=== PATIENT | male | born 1975 | race African-American/Black ===

== ENCOUNTER 2017-04-18 00:33 | Inpatient (IN) | payer OTHER ==
[2017-04-18] MEDS ORDERED: methylPREDNISolone SOD SUCCI 125 MG/2 ML VIAL IV STA (00:48)
[2017-04-18] MEDS ORDERED: SODIUM CHLORIDE 0.9% 500 ML IV STA (00:48)
[2017-04-18] MEDS ORDERED: IPRATROPIUM 0.5 MG/2.5 ML NEBU INHALATION STA (00:48)
[2017-04-18] MEDS ORDERED: ALBUTEROL NEBULIZED 2.5 MG/3 ML INHALATION STA (00:48)
[2017-04-18 01:28] LABS: Basophils # (A) 0.1 k/uL (0-0.2); Basophils % (A) 1 %; CH 31.2; CHCM 34.3; Eosinophils # (A) 0.5 k/uL (0-0.7); Eosinophils % (A) 5 %; HCT 40.8 % (39.0-53.0); HDW 2.92; HGB 13.8 gm/dL (13.0-17.5); Luc # (Auto) 0.14; Luc % (Auto) 2; Lymphocytes # (A) 1.5 k/uL (1.0-4.8); Lymphocytes % (A) 16 %; MCH 31.1 pg (25.0-35.0); MCHC 33.9 g/dL (31.0-37.0); MCV 91.7 fL (80.0-100.0); Mean Platelet Volume 6.5; Monocytes # (A) 0.4 k/uL (0-1.0); Monocytes % (A) 4 %; Neutrophils # (A) 6.8 k/uL (1.3-7.7); Neutrophils % (A) 72 %; RBC 4.45 m/uL (4.30-5.90); RDW 13.7 % (11.5-15.5); WBC 9.5 k/uL (3.8-10.6); WBC (Perox) 9.56
[2017-04-18 01:40] LABS: ALT 66 U/L (21-72); AST 51 U/L (17-59); Alkaline Phosphatase 93 U/L (38-126); Anion Gap 12 mmol/L; Blood Urea Nitrogen 15 mg/dL (9-20); Carbon Dioxide 20 mmol/L (22-30); Chloride 108 mmol/L (98-107); Glucose 101 mg/dL (74-99); Magnesium 1.9 mg/dL (1.6-2.3); Non-African American GFR(MDRD) >60 (>60 ml/min/1.73 sqM); Potassium 4.3 mmol/L (3.5-5.1); Sodium 140 mmol/L (137-145); Total Bilirubin 0.8 mg/dL (0.2-1.3); Total Protein 7.2 g/dL (6.3-8.2)
[2017-04-18 01:41] LABS: INR 1.1 (<1.2); Prothrombin Time 10.6 sec (9.0-12.0)
[2017-04-18 01:42] LABS: Partial Thromboplastin Time 25.8 sec (22.0-30.0)
[2017-04-18 02:00] LABS: Creatine Kinase MB 2.2 ng/mL (0.0-2.4); Troponin I 0.02 ng/mL (0.000-0.034)
--- NOTE | 2017-04-18 02:26 | XR ---
EXAM: XR Chest, 2 Views CLINICAL HISTORY: Reason: difficulty breathing TECHNIQUE: Frontal and lateral views of the chest. COMPARISON: No relevant prior studies available. FINDINGS: Lungs: Unremarkable. No consolidation. Pleural space: Unremarkable. No pneumothorax. Heart: Unremarkable. No cardiomegaly. Mediastinum: Unremarkable. Bones/joints: Unremarkable. IMPRESSION: Normal chest x-rays.
[2017-04-18 02:59] VITALS: TEMP 98.4
[2017-04-18] MEDS ORDERED: amLODIPine 5 MG TAB PO STA ×2 (03:00→12:39)
[2017-04-18] MEDS ORDERED: IPRATROPIUM-ALBUTEROL 3 ML NEB INHALATION PRN (03:23)
[2017-04-18] MEDS ORDERED: SODIUM CHLORIDE 0.9% 1,000 ML IV SCH (03:30)
--- NOTE | 2017-04-18 03:39 | ED ---
General Adult HPI - General Chief complaint: Shortness of Breath Stated complaint: SALTY Time Seen by Provider: 04/18/17 00:41 Source: patient, RN notes reviewed Mode of arrival: ambulatory Limitations: no limitations - History of Present Illness Initial comments: 41-year-old male with history of asthma and hypertension presents with a an 8 day history of worsening cough and difficulty breathing. Patient's cough is productive of white sputum. Patient does report feeling warm and sweaty, denies fever or chills. Patient's cough has been worsening, was treated with cough syrup as an outpatient with minimal relief. Denies sore throat or runny nose. Does report some chest tightness worse with cough. This is nonradiating. Denies abdominal pain. Denies nausea vomiting or diarrhea. Patient states he has not taken his blood pressure medication over the last year. - Related Data Allergies Allergy/AdvReac Type Severity Reaction Status Date / Time tree nut Allergy Anaphylaxis Verified 04/18/17 00:40 Review of Systems ROS Statement: Those systems with pertinent positive or pertinent negative responses have been documented in the HPI. ROS Other: All systems not noted in ROS Statement are negative. Past Medical History Past Medical History: Asthma, Hypertension History of Any Multi-Drug Resistant Organisms: None Reported Additional Past Surgical History / Comment(s): left knee Past Psychological History: No Psychological Hx Reported Smoking Status: Current some day smoker Past Alcohol Use History: Occasional Past Drug Use History: None Reported General Exam Limitations: no limitations General appearance: alert, in distress Head exam: Present: atraumatic, normocephalic Eye exam: Present: normal appearance, PERRL ENT exam: Present: normal exam, normal oropharynx, mucous membranes dry Neck exam: Present: normal inspection. Absent: tenderness, meningismus Respiratory exam: Present: respiratory distress, wheezes, accessory muscle use, decreased breath sounds, prolonged expiratory Cardiovascular Exam: Present: normal rhythm, tachycardia GI/Abdominal exam: Present: soft. Absent: distended, tenderness, guarding Extremities exam: Present: normal inspection, full ROM, normal capillary refill. Absent: pedal edema Back exam: Present: normal inspection, full ROM. Absent: tenderness, CVA tenderness (R), CVA tenderness (L) Neurological exam: Present: alert, oriented X3, CN II-XII intact. Absent: motor sensory deficit Psychiatric exam: Present: normal affect, normal mood Skin exam: Present: warm, diaphoretic. Absent: cyanosis Course Vital Signs 04/18/17 04/18/17 04/18/17 00:35 00:58 01:05 Temperature 100.2 F H 97.7 F Pulse Rate 96 79 80 Respiratory 28 H 10 L Rate Blood Pressure 213/119 175/112 O2 Sat by Pulse 96 89 L Oximetry 04/18/17 04/18/17 04/18/17 01:26 02:00 02:56 Temperature 98.4 F Pulse Rate 75 85 75 Respiratory 18 Rate Blood Pressure 187/102 O2 Sat by Pulse 99 Oximetry 04/18/17 03:26 Temperature Pulse Rate 82 Respiratory 20 Rate Blood Pressure 179/108 O2 Sat by Pulse 97 Oximetry - Reevaluation(s) Reevaluation #1: 04/18/17 03:40 Reevaluation, patient is still in moderate respiratory distress, has prolonged end expiratory wheeze. There is improved air entry after nebulized albuterol. EKG Findings - EKG Comments: EKG Findings:: EKG shows normal sinus rhythm, ventricular rate 81, RI interval 162, castration 86, QTC 439, there is J-point elevation in V3, no signs of ischemia Medical Decision Making - Medical Decision Making 41-year-old male with known history of asthma presents with 8 days of worsening cough and dyspnea. On initial evaluation patient is tachypneic, tachycardic, hypertensive, in moderate respiratory distress. He is hypoxic at 89% on 2 L nasal cannula. Patient has decreased breath sounds with end expiratory wheezing , accessory muscle use. Patient is given IV steroids, one hour treatment of albuterol and Atrovent. Laboratory studies including CBC, CMP, and cardiac enzymes are unremarkable. EKG is nonischemic. Chest x-ray shows no focal pneumonia. On reevaluation patient is still in mild respiratory distress, there is improved air entry. Patient will be admitted for continued steroids and nebulized albuterol. He is also given antibiotics as he symptoms have been persistent for 8 days. Patient is hypertensive in the emergency department. He was previously on antihypertensive medication but he does not know which one. He is given 5 mg Norvasc in the emergency department and started on Norvasc 5 mg daily. Diagnosis: Asthma exacerbation with hypoxia, hypotension - Lab Data Result diagrams: 04/18/17 01:15 04/18/17 01:15 Lab Results 04/18/17 04/18/17 04/18/17 Range/Units 01:15 01:15 01:15 WBC 9.5 (3.8-10.6) k/uL RBC 4.45 (4.30-5.90) m/uL Hgb 13.8 (13.0-17.5) gm/dL Hct 40.8 (39.0-53.0) % MCV 91.7 (80.0-100.0) fL MCH 31.1 (25.0-35.0) pg MCHC 33.9 (31.0-37.0) g/dL RDW 13.7 (11.5-15.5) % Plt Count 203 (150-450) k/uL Neutrophils % 72 % Lymphocytes % 16 % Monocytes % 4 % Eosinophils % 5 % Basophils % 1 % Neutrophils # 6.8 (1.3-7.7) k/uL Lymphocytes # 1.5 (1.0-4.8) k/uL Monocytes # 0.4 (0-1.0) k/uL Eosinophils # 0.5 (0-0.7) k/uL Basophils # 0.1 (0-0.2) k/uL PT (9.0-12.0) sec INR (<1.2) APTT (22.0-30.0) sec Sodium 140 (137-145) mmol/L Potassium 4.3 (3.5-5.1) mmol/L Chloride 108 H (98-107) mmol/L Carbon Dioxide 20 L (22-30) mmol/L Anion Gap 12 mmol/L BUN 15 (9-20) mg/dL Creatinine 1.10 (0.66-1.25) mg/dL Est GFR (MDRD) Af Amer >60 (>60 ml/min/1.73 sqM) Est GFR (MDRD) Non-Af >60 (>60 ml/min/1.73 sqM) Glucose 101 H (74-99) mg/dL Calcium 9.0 (8.4-10.2) mg/dL Magnesium 1.9 (1.6-2.3) mg/dL Total Bilirubin 0.8 (0.2-1.3) mg/dL AST 51 (17-59) U/L ALT 66 (21-72) U/L Alkaline Phosphatase 93 (38-126) U/L Total Creatine Kinase 609 H (55-170) U/L CK-MB (CK-2) 2.2 (0.0-2.4) ng/mL CK-MB (CK-2) Rel Index 0.4 Troponin I 0.020 (0.000-0.034) ng/mL Total Protein 7.2 (6.3-8.2) g/dL Albumin 4.4 (3.5-5.0) g/dL 04/18/17 Range/Units 01:15 WBC (3.8-10.6) k/uL RBC (4.30-5.90) m/uL Hgb (13.0-17.5) gm/dL Hct (39.0-53.0) % MCV (80.0-100.0) fL MCH (25.0-35.0) pg MCHC (31.0-37.0) g/dL RDW (11.5-15.5) % Plt Count (150-450) k/uL Neutrophils % % Lymphocytes % % Monocytes % % Eosinophils % % Basophils % % Neutrophils # (1.3-7.7) k/uL Lymphocytes # (1.0-4.8) k/uL Monocytes # (0-1.0) k/uL Eosinophils # (0-0.7) k/uL Basophils # (0-0.2) k/uL PT 10.6 (9.0-12.0) sec INR 1.1 (<1.2) APTT 25.8 (22.0-30.0) sec Sodium (137-145) mmol/L Potassium (3.5-5.1) mmol/L Chloride (98-107) mmol/L Carbon Dioxide (22-30) mmol/L Anion Gap mmol/L BUN (9-20) mg/dL Creatinine (0.66-1.25) mg/dL Est GFR (MDRD) Af Amer (>60 ml/min/1.73 sqM) Est GFR (MDRD) Non-Af (>60 ml/min/1.73 sqM) Glucose (74-99) mg/dL Calcium (8.4-10.2) mg/dL Magnesium (1.6-2.3) mg/dL Total Bilirubin (0.2-1.3) mg/dL AST (17-59) U/L ALT (21-72) U/L Alkaline Phosphatase (38-126) U/L Total Creatine Kinase (55-170) U/L CK-MB (CK-2) (0.0-2.4) ng/mL CK-MB (CK-2) Rel Index Troponin I (0.000-0.034) ng/mL Total Protein (6.3-8.2) g/dL Albumin (3.5-5.0) g/dL Critical Care Time Critical Care Time: Yes Total Critical Care Time: 35 Disposition Clinical Impression: Asthma with exacerbation Disposition: ADMITTED IP TO THIS [facility] Condition: Stable Referrals: None,Stated [Primary Care Provider] - 1-2 days Decision to Admit Reason: Admit from EC Decision Date: 04/18/17 Decision Time: 03:23
[2017-04-18 05:33] VITALS: RESP 20
[2017-04-18 08:34] VITALS: BMI 35.2
[2017-04-18] MEDS ORDERED: amLODIPine 5 MG TAB PO SCH (09:00)
[2017-04-18] MEDS ORDERED: predniSONE 20 MG TAB PO SCH (09:00)
[2017-04-18] MEDS ORDERED: AZITHROMYCIN 500 MG TAB PO SCH (09:00)
[2017-04-18 10:17] VITALS: BP 208/110; PULSE 77
[2017-04-18] MEDS ORDERED: HYDROCHLOROTHIAZIDE 25 MG TAB PO SCH (12:45)
[2017-04-18] MEDS ORDERED: LISINOPRIL 20 MG TAB PO SCH (12:45)
--- NOTE | 2017-04-18 17:33 | P.HPIM ---
History of Present Illness H&P Date: 04/18/17 (Discharge summary as well) Chief Complaint: Difficulty breathing This is a 41-year-old gentleman with asthma previous history of hypertension comes into the hospital with the difficulty breathing for the last few weeks. Patient has a history of asthma since his childhood, only uses albuterol as needed. Patient apparently was last hospitalized 10 years ago Patient states that he does not have a physician at this time Patient was seen in the ER was noted to be wheezing significantly on physical exam a chest x-ray did not reveal any acute abdomen on his patient was started on steroids and breathing treatments and admitted to the hospital Patient apparently has a previous history of essential hypertension was started on blood pressure medications however stopped taken him after he ran out of his prescriptions due to monetary issues Today patient's blood pressure was 200/100 systolic, diastolic. Patient denies having any headaches, blurry vision, focal deficits, nausea, chest pain, difficulty breathing. Denies having any family history of heart disease After breathing treatments patient's symptoms of improved significantly denies having any cough at this time. Review of Systems All systems: negative Past Medical History Past Medical History: Asthma, Hypertension Additional Past Medical History / Comment(s): plantar warts on bilateral feet History of Any Multi-Drug Resistant Organisms: None Reported Past Surgical History: Orthopedic Surgery Additional Past Surgical History / Comment(s): left knee Past Anesthesia/Blood Transfusion Reactions: No Reported Reaction Past Psychological History: No Psychological Hx Reported Smoking Status: Former smoker Past Alcohol Use History: Occasional Past Drug Use History: None Reported Medications and Allergies Home Medications Medication Instructions Recorded Confirmed Type Albuterol Inhaler [Ventolin Hfa 1 - 2 puff INHALATION RT-Q6H PRN 04/18/17 History Inhaler] Albuterol Nebulized [Ventolin 2.5 mg INHALATION RT-Q4H PRN 04/18/17 04/18/17 History Nebulized] Allergies Allergy/AdvReac Type Severity Reaction Status Date / Time lisinopril Allergy Rash/Hives Verified 04/18/17 12:46 tree nut Allergy Anaphylaxis Verified 04/18/17 11:21 Physical Exam Vitals: Vital Signs Temp Pulse Pulse Resp BP BP Pulse Ox 04/18/17 10:16 77 208/110 04/18/17 05:32 75 20 183/114 98 04/18/17 03:56 78 18 178/105 97 04/18/17 03:26 82 20 179/108 97 04/18/17 02:56 98.4 F 75 18 187/102 99 04/18/17 02:00 85 04/18/17 01:26 75 04/18/17 01:05 80 04/18/17 00:58 97.7 F 79 10 L 175/112 89 L 04/18/17 00:35 100.2 F H 96 28 H 213/119 96 Intake and Output 04/18/17 04/18/17 04/18/17 06:59 14:59 22:59 Intake Total 600 Balance 600 Intake: Intake, IV Titration 300 Amount Sodium Chloride 0.9% 1, 300 000 ml @ 50 mls/hr IV . Q20H [facility] Rx#:[id number] Oral 300 Other: Weight 117.934 kg Physical exam Gen. appearance oriented 3 in no distress Neck is supple no JVD Lungs he is in expiratory wheezing noted no rhonchi or crackles appreciated. Heart S1-S2 heard regular rate and rhythm no murmurs appreciated Abdomen is soft nontender no organomegaly bowel sounds are intact Neurologically cranial nerves II-12 grossly intact no focal motor or sensory deficits noted Skin no abnormalities appreciated Results CBC & Chem 7: 04/18/17 01:15 04/18/17 01:15 Labs: Abnormal Lab Results - Last 24 Hours (Table) 04/18/17 04/18/17 Range/Units 01:15 01:15 Chloride 108 H (98-107) mmol/L Carbon Dioxide 20 L (22-30) mmol/L Glucose 101 H (74-99) mg/dL Total Creatine Kinase 609 H (55-170) U/L Thrombosis Risk Factor Assmnt - Choose All That Apply Any of the Below Risk Factors Present?: Yes Each Factor Represents 1 point: Age 41-60 years Thrombosis Risk Factor Assessment Total Risk Factor Score: 1 Thrombosis Risk Factor Assessment Level: Low Risk Assessment and Plan Plan: Acute exacerbation of asthma in a patient but continues to smoke #2 hypertensive urgency #3 ongoing tobacco use Plan Patient be started on 2 blood pressure medications including amlodipine and hydrochlorothiazide Patient will be discharged on Symbicort as a step up therapy patient is referred to Dr. Arya Enriquez to establish primary care.
[2017-04-18] MEDS ORDERED: SYMBICORT 160-4.5 MCG INHALER INHALATION SCH (20:00)
== END 2017-04-18 15:48 | disposition home or self-care (01) | DRG 203 ==
LOC: EC 00:33 → 5MS5E 03:23
PROVIDERS: ADMIT Hospitalist; ATTEND Hospitalist
DX: J45.901 Unspecified asthma with (acute) exacerbation (principal); I10 Essential (primary) hypertension; F17.200 Nicotine dependence, unspecified, uncomplicated; R09.02 Hypoxemia; I16.0 Hypertensive urgency
CPT/HCPCS: 36415; 71020; 80053; 82550; 82553; 83735; 84484; 85025; 85610; 85730; 93005; 94644; 96374; 99291

== ENCOUNTER 2017-11-05 23:37 | Emergency (ER) | payer OTHER ==
[2017-11-06] MEDS ORDERED: ACETAMINOPHEN TAB 325 MG TAB PO STA (00:09)
[2017-11-06] MEDS ORDERED: IBUPROFEN 600 MG TAB PO STA (00:09)
--- NOTE | 2017-11-06 00:11 | ED ---
Back Pain HPI - General Chief Complaint: Back Pain/Injury Stated Complaint: Fall-Back Pain Time Seen by Provider: 11/05/17 23:56 Source: patient Limitations: no limitations - History of Present Illness Initial Comments: 42-year-old male patient presents to the emergency department today for evaluation of thoracic back pain after a slip and fall accident. Patient states around 2240 this evening he was coming out of his house when he slipped on the ice and fell backward striking his back on the concrete. Patient denies hitting his head or losing consciousness. He denies any chest pain, shortness of breath, cough, or hemoptysis. Denies any numbness or tingling in his upper or lower extremities. Patient denies any headache, neck pain, dizziness, weakness, abdominal pain, nausea, vomiting, or difficulties with bowel movements or urination. - Related Data Home Medications Medication Instructions Recorded Confirmed Albuterol Inhaler [Ventolin Hfa 1 - 2 puff INHALATION RT-Q6H PRN 04/18/17 Inhaler] Albuterol Nebulized [Ventolin 2.5 mg INHALATION RT-Q4H PRN 04/18/17 04/18/17 Nebulized] Previous Rx's Medication Instructions Recorded Azithromycin [Zithromax] 500 mg PO DAILY #3 tab 04/18/17 Budesonide-Formot 160-4.5 Mcg 2 puff INHALATION RT-BID #1 inhaler 04/18/17 [Symbicort 160-4.5 Mcg Inhaler] Hydrochlorothiazide [Hydrodiuril] 25 mg PO DAILY #30 tab 04/18/17 amLODIPine [Norvasc] 10 mg PO DAILY #30 tablet 04/18/17 Ibuprofen [Motrin] 600 mg PO Q8HR PRN #30 tab 11/06/17 Allergies Allergy/AdvReac Type Severity Reaction Status Date / Time lisinopril Allergy Rash/Hives Verified 11/05/17 23:43 tree nut Allergy Anaphylaxis Verified 11/05/17 23:43 Review of Systems ROS Statement: Those systems with pertinent positive or pertinent negative responses have been documented in the HPI. ROS Other: All systems not noted in ROS Statement are negative. Past Medical History Past Medical History: Asthma, Hypertension Additional Past Medical History / Comment(s): plantar warts on bilateral feet History of Any Multi-Drug Resistant Organisms: None Reported Past Surgical History: Orthopedic Surgery Additional Past Surgical History / Comment(s): left knee Past Anesthesia/Blood Transfusion Reactions: No Reported Reaction Past Psychological History: No Psychological Hx Reported Smoking Status: Former smoker Past Alcohol Use History: Occasional Past Drug Use History: Marijuana General Exam Limitations: no limitations General appearance: alert, in no apparent distress, other (This is a well- developed, well-nourished adult male patient in no acute distress. Vital signs upon presentation are temperature 97.4F, pulse 79, respirations 18, blood pressure 132/81, pulse ox 98% on room air.) Eye exam: Present: normal appearance, PERRL, EOMI. Absent: scleral icterus, conjunctival injection, periorbital swelling ENT exam: Present: normal exam, normal oropharynx, mucous membranes moist Neck exam: Present: normal inspection, full ROM, other (Nontender, no step-off, no deformity to firm midline palpation of the posterior cervical spine. Full range of motion without pain or limitation.). Absent: tenderness, meningismus, lymphadenopathy Respiratory exam: Present: normal lung sounds bilaterally. Absent: respiratory distress, wheezes, rales, rhonchi, stridor Cardiovascular Exam: Present: regular rate, normal rhythm, normal heart sounds. Absent: systolic murmur, diastolic murmur, rubs, gallop, clicks Back exam: Present: normal inspection, vertebral tenderness (Tenderness over the upper thoracic vertebrae), other (No bony deformity, step-off noted to the thoracic or lumbar spines.) Neurological exam: Present: alert, oriented X3, CN II-XII intact, other ( Strength in all 4 extremities is 5/5.) Psychiatric exam: Present: normal affect, normal mood Skin exam: Present: warm, dry, intact, normal color. Absent: rash Course Vital Signs 11/05/17 11/06/17 23:38 01:29 Temperature 97.4 F L 98.2 F Pulse Rate 79 68 Respiratory 18 17 Rate Blood Pressure 132/81 130/79 O2 Sat by Pulse 98 97 Oximetry Medical Decision Making - Medical Decision Making 42-year-old male patient presents to the emergency department today for complaints of thoracic back pain after a slip and fall accident. Physical examination does reveal some upper thoracic tenderness. Patient is otherwise neurologically intact. X-ray of the thoracic spine shows no acute fracture or dislocation. Patient was given ibuprofen here in the department. He does report minimal improvement of his symptoms. Patient will be discharged home to follow-up with his primary care physician for recheck in 1-2 days. He is instructed to return here immediately for any new, worsening, or concerning symptoms. He verbalizes understanding and agrees this plan. - Radiology Data Radiology results: report reviewed, image reviewed 3 views of the thoracic vertebrae shows normal spacing and alignment. Posterior elements are intact. I see no paraspinal mass. There is no sign of compression fracture. Impression by Dr. Dallas shows negative thoracic spine exam. Disposition Clinical Impression: Thoracic back pain, Contusion Disposition: HOME SELF-CARE Condition: Good Instructions: Contusion in Adults (ED), Back Pain (ED) Additional Instructions: Take pain medication as directed. Follow-up with her primary care physician for recheck in 1-2 days. Return here immediately for any new, worsening, or concerning symptoms. Prescriptions: Ibuprofen [Motrin] 600 mg PO Q8HR PRN #30 tab PRN Reason: Pain Referrals: Arya Enriquez MD [Primary Care Provider] - 1-2 days Time of Disposition: 01:17
--- NOTE | 2017-11-06 00:54 | XR ---
EXAMINATION TYPE: XR thoracic spine complete DATE OF EXAM: 11/06/2017 COMPARISON: NONE HISTORY: Fell on the back. Back pain TECHNIQUE: 3 views FINDINGS: The thoracic vertebra have normal spacing and alignment. Posterior elements are intact. I s ee no paraspinal mass. There is no sign of compression fracture. IMPRESSION: Negative thoracic spine exam.
[2017-11-06 01:29] VITALS: BP 130/79; PULSE 68; RESP 17; TEMP 98.2
--- NOTE | 2017-11-09 02:38 | CDI ---
Documentation Clarification OP Dear Edna CottonC Please do addendum to ED report for missing specific contusion site Thank you, Axel Daugherty [employer] If you have any questions, please contact [employer] at [phone] [facility]
== END 2017-11-06 01:29 | disposition home or self-care (01) ==
LOC: EC 23:37
DX: S20.229A Contusion of unspecified back wall of thorax, initial encounter (principal); Z88.8 Allergy status to other drugs, medicaments and biological substances; Z91.018 Allergy to other foods; Z87.891 Personal history of nicotine dependence; W00.0XXA Fall on same level due to ice and snow, initial encounter
CPT/HCPCS: 72072; 99283